=== PATIENT | male | born 1980 | race Caucasian/White ===

== ENCOUNTER 2016-09-09 16:27 | Emergency (ER) | payer MEDICAID ==
[~2016-09-09] VITALS: Ht 165.1 cm; Wt 75.0 kg
[~2016-09-09 16:27] MED LIST: NOCURR
[2016-09-09 18:03] LABS: INFLUENZA TYPE B NEGATIVE FOR TYPE B (NEGATIVE)
[2016-09-09 19:14] VITALS: BP 129/77
== END 2016-09-09 19:14 | disposition home or self-care (01) ==
LOC: EMS 16:28
DX: H66.91 Otitis media, unspecified, right ear (principal); R09.89 Other specified symptoms and signs involving the circulatory and respiratory systems; F17.210 Nicotine dependence, cigarettes, uncomplicated
CPT/HCPCS: 87804; 99284

== ENCOUNTER 2017-05-24 00:32 | Emergency (ER) | payer MEDICAID ==
[~2017-05-24] VITALS: Ht 165.1 cm; Wt 86.4 kg
[2017-05-24] MEDS ORDERED: IBUPROFEN 800 MG TABLET PO ONE (04:00)
[2017-05-24 04:53] VITALS: BP 128/80
== END 2017-05-24 04:55 | disposition home or self-care (01) ==
LOC: EMS 00:33
DX: S46.002A Unspecified injury of muscle(s) and tendon(s) of the rotator cuff of left shoulder, initial encounter (principal); F17.210 Nicotine dependence, cigarettes, uncomplicated; X58.XXXA Exposure to other specified factors, initial encounter; Y93.89 Activity, other specified; Y92.89 Other specified places as the place of occurrence of the external cause; Y99.8 Other external cause status
CPT/HCPCS: 99284